=== PATIENT | male | born 1955 | race Hispanic/Latino ===

== ENCOUNTER 2019-03-11 11:33 | Emergency (ER) | payer OTHER ==
[2019-03-11 12:13] LABS: #Basophils 0.1 thou/uL (0.0-0.2); #Eosinphils 0.1 thou/uL (0.0-0.7); #Lymphocytes 1.9 thou/uL (1.20-3.40); #Monocytes 0.7 thou/uL (0.11-0.59); #Neutrophils 4.2 thou/uL (1.40-6.50); %Basophils 0.8 % (0.0-1.0); %Eosinophils 1.9 % (0.0-10.0); %Lymphocytes 26.9 % (21.0-51.0); %Neutrophils 60.4 % (42.0-75.0); Hemoglobin 10.7 g/dL (14.0-18.0); Mean Corpuscular HGB CONC 33.1 g/dL (32.0-36.0); Mean Corpuscular Hemoglobin 28.7 pg (27.0-31.0); Mean Corpuscular Volume 86.6 fL (78.0-98.0); Mean Platelet Volume 7.5 fL (7.4-10.4); Platelet Count 264 thou/uL (130-400); RBC Distribution Width 12.7 % (11.5-14.5); Red Blood Cell (RBC) Count 3.72 mill/uL (4.70-6.10)
[2019-03-11 12:34] LABS: ALT (SGPT) 23 U/L (8-55); AST (SGOT) 23 U/L (5-34); Albumin 3.6 g/dL (3.4-4.8); Alkaline Phosphatase 108 U/L (40-110); Anion Gap 15 mmol/L (10-20); BUN (Urea Nitrogen) 13 mg/dL (8.4-25.7); Bilirubin, Total 0.6 mg/dL (0.2-1.2); Calc. Creatinine Clearance 0 mL/min (70-130); Calcium 9.2 mg/dL (7.8-10.44); Carbon Dioxide 25 mmol/L (23-31); Chloride 101 mmol/L (98-107); Estimated GFR-MDRD Greater than 90; Globulin 3.3 g/dL (2.4-3.5); Glucose 104 mg/dL (80-115); Protein, Total 6.9 g/dL (5.8-8.1); Sodium 138 mmol/L (136-145)
[2019-03-11 12:39] LABS: Potassium 2.7 mmol/L (3.5-5.1)
[2019-03-11] MEDS ORDERED: Potassium Chloride 20 MEQ TAB ONE (13:05)
[2019-03-11] MEDS ORDERED: NS 0.9% w/ 40 MEQ KCL 1,000 ML IV SCH (13:30)
[2019-03-11] MEDS ORDERED: Iopamidol-370 76% 500 ML 1 ML ONE (13:39)
--- NOTE | 2019-03-11 16:48 | CT ---
CT abdomen and pelvis with IV and oral contrast HISTORY: Abdomen pain. Inflammation at the ostomy site. FINDINGS: No comparison. Mild atelectasis at the lung bases. Small amount of free fluid throughout the abdomen and pelvis. Uri nary bladder is decompressed. Stranding throughout the intra-abdominal fat. A widemouth defect of the anterior midline upper abdomi nal wall present with associated ostomy. Abdominal fat also extends through the abdominal wall defect. No evidence of bowel obstruction. The remaining right colon shows circumferential wall thickening with stranding in the immediately adj acent fat. Inflammation is less pronounced involving the left colon. Calcification within the coronary arteries. Prominent degenerative changes of the lumbar spine. The l ateral spondylolysis at the lumbosacral junction with grade 2 spondylolisthesis. IMPRESSION: Long segment inflammation of the colon involving the right colon greater than left. Cause is not evident. Consider infection. Small amount of free fluid also evident throughout the abdomen and pelvis. Anterior abdominal wall ostomy with herniation of a moderate amount of intra-abdominal fat through th e associated wide mouth defect. Atherosclerosis. Bilateral spondylolysis at the lumbosacral junction with grade 2 spondylolisthesis.
== END 2019-03-11 19:09 ==
LOC: ERS 11:33
DX: K52.9 Noninfective gastroenteritis and colitis, unspecified (principal)
CPT/HCPCS: 36415; 74177; 80053; 85025; 93005; 96360; 96361; J3480; Q9967